=== PATIENT | male | born 1970 | race Caucasian/White ===

== ENCOUNTER 2020-10-02 06:54 | Day surgery (SDC) | payer BC ==
[~2020-10-02] VITALS: Ht 175.3 cm; Wt 75.0 kg
[~2020-10-02 06:54] MED LIST: BENADRYL25 MG PO
--- NOTE | 2020-10-02 08:02 | NUR ---
10/02/20 0802 Eloy Odell PATIENT DETERMINED TO BE ASA APPROPRIATE FOR PROPOFOL SEDATION PRIOR TO START OF PROCEDURE BY DR. AMAYA.Bite Block Placed. History, Chart, Medications and Allergies reviewed before start of procedure.MONITOR INTACT WITH CONTINUOUS PULSE OXIMETRY AND INTERMITTENT BP.O2 VIA N/C INTACT THROUGHOUT SEDATION/PROCEDURE.
== END 2020-10-02 23:48 | disposition home or self-care (01) ==
LOC: ORSCMMR 06:54 → ORD 08:00 → ORSCMMR 23:48
PROVIDERS: Internal Medicine Gastroenterology
PROC: 0DB68ZX Excision of Stomach, Via Natural or Artificial Opening Endoscopic, Diagnostic (ICD-10-PCS; principal; 2020-10-02 08:00)
PROC: 0DB98ZX Excision of Duodenum, Via Natural or Artificial Opening Endoscopic, Diagnostic (ICD-10-PCS; principal; 2020-10-02 08:00)
DX: R11.2 Nausea with vomiting, unspecified (principal); K29.70 Gastritis, unspecified, without bleeding; K44.9 Diaphragmatic hernia without obstruction or gangrene; K31.89 Other diseases of stomach and duodenum; Z87.891 Personal history of nicotine dependence
CPT/HCPCS: 88305; 88342; A9270; J2704; J7120